=== PATIENT | male | born 1960 | race Caucasian/White ===

== ENCOUNTER → 2023-10-05 08:45 | Outpatient (REF) | payer BC, SELFPAY | LOC: RAD 08:45 | PROVIDERS: ATTENDING PHYSICIAN Physician Assistant Medical | DX: R09.89 Other specified symptoms and signs involving the circulatory and respiratory systems (principal) | CPT/HCPCS: 71046 ==

== ENCOUNTER → 2023-11-01 07:04 | Outpatient (REF) | payer BC, SELFPAY | LOC: HWRCS 07:04 | PROVIDERS: ATTENDING PHYSICIAN Physician Assistant Medical; FAMILY PHYSICIAN Family Medicine | DX: R09.89 Other specified symptoms and signs involving the circulatory and respiratory systems (principal) | CPT/HCPCS: 93306 ==

== ENCOUNTER 2024-09-13 17:53 | Emergency (ER) | payer BC, SELFPAY ==
[2024-09-13 17:54] VITALS: BP 180/100
--- NOTE | 2024-09-13 19:01 | ED.GENMED ---
History of Present Illness
General
Chief Complaint: Musculo-Skeletal Complaint
Source: patient
Exam Limitations: none
Time Seen by Provider: 09/13/24 18:12
Nursing documentation reviewed up to this point in time: agreed with
History of Present Illness
History of Present Illness:
pt is a 64 y/o M with h/o gout, CAD, htn, hld
here with pain in R knee
walked a few mild 2 days ago and then overnigth developed some pain
then notice dyesterday that pain was worse with flexion but was still able to sit at his desk
the swelling developed overnight and now he has trouble bending it at all
no redness, warmth, numbness/tingling/weakness
pain is mostly suprapatellar
never had any trauma
took meloxicam today 15 mg left over from hip surgery
has seen raulito int he past
has never had gout flare up in the R knee
but previous xray shows chondrocalcinosis
Past History
Past History
ED Past Medical History: HTN and Hypercholesterolemia
ED Past Surgical History: Orthopedic
Social History
Tobacco: Non-smoker
Personal:
Review of Systems
Review of Systems
Allergies reviewed?: Yes
All Other Systems: Not applicable
Phy Exam
Physical Exam
Physical Exam:
GENERAL: Alert , in no apparent distress, comfortable at rest
HEAD: NCAT
CV: 2+ DP PULSES B/L
NEUROLOGICAL: Alert and oriented, no focal neuro deficits, , 5/5 strength, sensation intact, ambulation slight limp right leg
SKIN: Warm and dry, no erythema
MUSCULOSKELETAL: Moderate suprapatellar and prepateellar swelling of the right knee, tenderness along the quadriceps tendon, patella does not seem to be malpositioned, he has significant pain with flexion of the knee but I am able to passively flex
him 15 degrees, he is not able to perform a straight leg raise, there is no wounds, distally in the calf and foot is normal, the nontender, normal pulse
NO ERYTHEMA
PSYCH: Normal and appropriate interaction.
Course
Orders/Labs/Results
Orders:
Orders
09/13/24 17:56
Knee, Right 4 or More Views [CR Knee- Right 4 Or More View*] Urgent
Comment: no injury
Reason For Exam: right knee pain with swelling since tuesday
09/13/24 18:48
Oxycodone/Acetaminophen [Percocet 5/325] 1 tablet PO NOW STA
Vital Signs
Initial and Last Documented VS:
Initial Vital Signs
Temp Pulse Resp BP Pulse Ox
36.6 C 74 16 180/100 98
09/13/24 17:54 09/13/24 17:54 09/13/24 17:54 09/13/24 17:54 09/13/24 17:54
Last Documented Vital Signs
Temp Pulse Resp BP Pulse Ox
36.6 C 74 18 149/91 97
09/13/24 17:54 09/13/24 19:54 09/13/24 20:01 09/13/24 19:54 09/13/24 19:54
MDM/Problems Addressed
Differential Diagnosis Includes:
bursitis, gout, pseudogout, quad tendinitis;
MDM/Problems Addressed:
64 y/o M h/o hip surgery previously and gout in his foot not on allopurinol
walked a few miles tuesday then overnight into tue developed R knee pain which graudally worsened with swelling; yesterday he could sit flexed in a chair but today has significant pain with flexion and prefers extension; no fever/redness/warmth
on exam he has a prepatellar and suprapatellar effusion and tenderness over the quad tendon; i can get him passively to flex 15 degrees, he has a lot of pain; and cannot straight leg raise;
the xray independently reviewd by me looks like chondrocalcinosis mod medial and laterally, moderate prepatellar STS; mild OA
dx would favor prepatellar bursitis; do not believe it is septic, no RF, no fever, no erythmea
this was d/w ortho
also consider gout/pseudogout
i spoke with dr. monahan
pt would prefer to be seen in ortho urgently for f/u and dr. monahan reomcmends that we hold on aspiration tonight and that tp be seen tomorrow in the office
nsaids and ice tonight
radha wrap applied
return precauitions given.
cruthces offered, pt declined.
*Critical Care Note
Total Time (30-74mins, 75-104mins- exclusive of procedures): Not Applicable
ED Attending Note
-
Portions of this chart may have been created with voice recognition software.� Occasional wrong word or��sound alike� substitutions may have occurred due to the inherent limitations of voice recognition software.
Discharge Plan
Departure
Patient Disposition: Home (Routine Discharge)
Date of Disposition: 09/13/24
Time of Disposition: 20:00
Patient with high blood pressure during this ER visit?: Yes
Condition: Fair
Covid-19: Not Applicable
Discharge Problem:
Bursitis, prepatellar, right
Instructions: Bursitis ED, BLOOD PRESSURE
Prescriptions:
New
oxycodone 5 mg tablet
5 mg PO Q8H PRN (Reason: Pain) Qty: 7 0RF
No Action
Flexoplex
1 dose PO DAILY
cholecalciferol (vitamin D3) 1,000 UNITS tablet
2,000 units PO DAILY
nitroglycerin 0.4 MG tablet, sublingual
0.4 mg sublingual [id number] PRN (Reason: chest pain) Qty: 25 2RF
Patient Comments:
never used
atorvastatin 80 MG tablet
80 mg PO DAILY
oxycodone 5 mg tablet
5 mg PO Q4H PRN (Reason: moderate-severe pain) Qty: 30 0RF
Rx Instructions:
1 tab for moderate pain, 2 if severe.
Dx total joint. Ongoing therapy.
meloxicam 15 mg tablet
15 mg PO DAILY Qty: 30 0RF
Rx Instructions:
Take with food.
Do not take within 2 hours of Aspirin post-surgery.
dexamethasone 4 mg tablet
4 mg PO BID Qty: 7 0RF
Rx Instructions:
Start night of discharge and continue twice a day until finished.
cyclobenzaprine 5 mg tablet
5 mg PO HS PRN (Reason: insomnia/muscle spasms) Qty: 10 0RF
famotidine [Pepcid] 20 mg tablet
20 mg PO HS Qty: 30 0RF
Rx Instructions:
Take nightly while on Meloxicam
mupirocin 2 % ointment
1 applic intranasal BID Qty: 1 0RF
Rx Instructions:
Has from prior R IFRAH.
ezetimibe [Zetia] 10 mg Tablet
10 mg PO DAILY
aspirin 325 mg capsule
325 mg PO DAILY Qty: 30 0RF
Rx Instructions:
Take daily x4 weeks for blood clot prevention; then resume Aspirin 81 mg daily.
docusate sodium [Colace] 100 mg capsule
100 mg PO BID Qty: 30 0RF
senna 8.6 mg capsule
17.2 mg PO BID Qty: 30 0RF
acetaminophen 325 mg tablet
650 mg PO Q4HWA Qty: 60 0RF
Rx Instructions:
DO NOT exceed >4000 mg daily.
lisinopril 10 MG tablet
10 mg PO DAILY Qty: 1 0RF
Rx Instructions:
HOLD if systolic blood pressure <130 while on Oxycodone.
Referrals:
Aaron Monahan MD [Active] - Tomorrow
Maddy,Russ J., DO [Family Provider] -
Activity Restrictions/Additional Instructions:
WEAR THE RADHA WRAP DURING THE DAY, TAKE IT OFF AT NIGHT
TAKE MELOXICAM 15 MG ONCE ADAY
YOU CAN USE OXYCODONE EVERY 6 OURS NEEDED FOR MORE SEVERE PAIN
ICE OFF AND ON
CALL THE OFFICE TOMORROW AND SAY THAT THE EMERGENCY DEPARTMENT PA SPOKE WITH DR MONAHAN WHO WATNED YOU TO BE SEEN ON TUESDAY IN THE OFFICE
RETURN FOR: SEVERE PAIN, REDNESS, FEVER, OR ANY COCNERNS.
Interventions
Interventions:
*Risk Screen - Suicide Last Done: 09/13/24 17:54
*General Assessment Last Done: 09/13/24 20:24
*Neglect/Abuse Screening Last Done: 09/13/24 17:54
ED- Fall Risk Assessment Last Done: 09/13/24 20:25
*ED COVID-19 Vaccine History Last Done: 09/13/24 20:24
*Nursing Disposition Last Done: 09/13/24 20:25
ED-Musculoskeletal Assessment Last Done: 09/13/24 20:01
Discharge Date and Time
Discharge Date/Time: 09/13/24 20:25
Print Language: GERMAN
[2024-09-13] MEDS: PERCOCET 5/325 1 TABLET PO (19:39)
[2024-09-13 19:54] VITALS: BP 149/91
== END 2024-09-13 20:25 | disposition home or self-care (01) ==
LOC: EMR 17:53
PROVIDERS: EMERGENCY PHYSICIAN Emergency Medicine; FAMILY PHYSICIAN Family Medicine
DX: M70.41 Prepatellar bursitis, right knee (principal); I25.10 Atherosclerotic heart disease of native coronary artery without angina pectoris; I10 Essential (primary) hypertension; E78.00 Pure hypercholesterolemia, unspecified
CPT/HCPCS: 99283; 73564

== ENCOUNTER → 2025-04-09 16:24 | Outpatient (REF) | payer BC, SELFPAY | LOC: RAD 16:24 | PROVIDERS: ATTENDING PHYSICIAN Nurse Practitioner Family | DX: S99.921A Unspecified injury of right foot, initial encounter (principal) | CPT/HCPCS: 73630 ==

== ENCOUNTER 2025-06-04 06:34 | Outpatient (RCR) | payer BC, SELFPAY | END 2025-06-04 23:59 | disposition home or self-care (01) | LOC: RPT 06:34 | PROVIDERS: ATTENDING PHYSICIAN Student in an Organized Health Care Education/Training Program; FAMILY PHYSICIAN Family Medicine | DX: M54.59 Other low back pain (principal); R26.89 Other abnormalities of gait and mobility; Z73.6 Limitation of activities due to disability; R26.2 Difficulty in walking, not elsewhere classified | CPT/HCPCS: 97110; 97162 ==

== ENCOUNTER → 2025-06-14 08:58 | Outpatient (REF) | payer BC, SELFPAY | LOC: RAD 08:58 | PROVIDERS: ATTENDING PHYSICIAN Family Medicine | DX: M54.50 Low back pain, unspecified (principal); M54.9 Dorsalgia, unspecified | CPT/HCPCS: 72040; 72072; 72100 ==

== ENCOUNTER 2025-07-01 14:13 | Outpatient (RCR) | payer BC, SELFPAY | END 2025-07-01 23:59 | disposition home or self-care (01) | LOC: RPT 14:13 | PROVIDERS: ATTENDING PHYSICIAN Student in an Organized Health Care Education/Training Program; FAMILY PHYSICIAN Family Medicine | DX: M54.59 Other low back pain (principal); R26.89 Other abnormalities of gait and mobility; Z73.6 Limitation of activities due to disability; R26.2 Difficulty in walking, not elsewhere classified | CPT/HCPCS: 97110 ==

== ENCOUNTER → 2025-07-01 14:27 | Outpatient (REF) | payer BC, SELFPAY | LOC: RAD 14:27 | PROVIDERS: ATTENDING PHYSICIAN Internal Medicine Cardiovascular Disease; FAMILY PHYSICIAN Family Medicine | DX: I77.9 Disorder of arteries and arterioles, unspecified (principal) | CPT/HCPCS: 93880 ==

== ENCOUNTER → 2025-07-20 06:39 | Outpatient (REF) | payer BC, SELFPAY | LOC: MRI 06:39 | PROVIDERS: ATTENDING PHYSICIAN Nurse Practitioner Family; FAMILY PHYSICIAN Family Medicine | DX: M54.42 Lumbago with sciatica, left side (principal) | CPT/HCPCS: 72148 ==